=== PATIENT | female | born 1940 | race Caucasian/White ===

== ENCOUNTER → 2016-09-24 | Outpatient (CLI) | payer OTHER | END | disposition home or self-care (01) | DX: M17.12 Unilateral primary osteoarthritis, left knee (principal); R26.2 Difficulty in walking, not elsewhere classified; M62.81 Muscle weakness (generalized); M25.662 Stiffness of left knee, not elsewhere classified | CPT/HCPCS: 97110 GP; 97150 GO; 97161 GP; 97165 GO ==

== ENCOUNTER 2016-10-07 06:55 | Inpatient (IN) | payer OTHER ==
[~2016-10-07] VITALS: Ht 165.1 cm; Wt 62.1 kg
[~2016-10-07 06:55] MED LIST: DYAZIDE, MA1 CAPSULE PO; IRON325 MG PO; LISINOPRIL5 MG PO; LORCET HD 10-31 EACH PO; MARTEN-TAB 3251 EACH PO; MS CONTIN,ORAMO30 MG PO; NEURONTIN300 MG PO; SYNTHROID88 MCG PO; ZOCOR20 MG PO; ZYRTEC10 M2 PO
[2016-10-07 07:27] VITALS: BP 185/86
[2016-10-07 07:50] VITALS: BP 185/86
[2016-10-07 13:56] VITALS: BP 167/74
[2016-10-07 14:31] LABS: PROTHROMBIN TIME 10.5 (9.2-11.2)
[2016-10-07 15:37] VITALS: BP 168/70
[2016-10-07 20:08] VITALS: BP 116/59
[2016-10-08 00:15] VITALS: BP 117/59
[2016-10-08 04:13] VITALS: BP 123/58
[2016-10-08 06:13] LABS: HEMATOCRIT 32.7 % (36.0-46.0); MCV 100.3 FL (83-99)
[2016-10-08 06:51] LABS: ANION GAP 4 MEQ/L (2-14); CHLORIDE 104 MEQ/L (99-109); GFR ESTIMATE (CALCULATED) > 59 mL/min/; GLUCOSE 128 mg/dL (70-99); POTASSIUM 4.1 MEQ/L (3.7-5.4); SAMPLE HEMOLYSIS CHECK 0; SAMPLE ICTERIC CHECK 0; SAMPLE LIPEMIA CHECK 0; SODIUM 140 MEQ/L (136-147); UREA NITROGEN (BUN) 14 mg/dL (9-23)
[2016-10-08 07:40] LABS: INTER. NORMALIZED RATIO 1.1; PROTHROMBIN TIME 10.9 (9.2-11.2)
[2016-10-08] MEDS ORDERED: COUMADIN2.5 MG PO (07:56)
[2016-10-08 08:00] VITALS: BP 183/76
[2016-10-08 12:26] VITALS: BP 166/77
[2016-10-08 16:15] VITALS: BP 172/75
[2016-10-08 20:25] VITALS: BP 161/70
[2016-10-09 00:25] VITALS: BP 156/68
[2016-10-09 04:20] VITALS: BP 185/80
[2016-10-09 05:48] LABS: HEMATOCRIT 30.3 % (36.0-46.0); MCV 98.4 FL (83-99)
[2016-10-09 06:03] LABS: INTER. NORMALIZED RATIO 2.1
[2016-10-09 06:10] LABS: PROTHROMBIN TIME 21.5 (9.2-11.2)
[2016-10-09 07:30] VITALS: BP 167/75
[2016-10-09 11:52] VITALS: BP 135/75
== END 2016-10-09 16:20 | DRG 470 ==
LOC: 3WEST 06:55 → 2SOUTH 06:55 → 3WEST 13:47 → 2SOUTH 15:46 → 3WEST 10-09 16:20
PROVIDERS: Orthopaedic Surgery
PROC: 0SRD0J9 Replacement of Left Knee Joint with Synthetic Substitute, Cemented, Open Approach (ICD-10-PCS; principal; 2016-10-07)
DX: M17.12 Unilateral primary osteoarthritis, left knee (principal); I10 Essential (primary) hypertension; R53.1 Weakness; G89.18 Other acute postprocedural pain; E78.5 Hyperlipidemia, unspecified; K21.9 Gastro-esophageal reflux disease without esophagitis; J30.89 Other allergic rhinitis; E03.9 Hypothyroidism, unspecified; K46.9 Unspecified abdominal hernia without obstruction or gangrene; G89.29 Other chronic pain
CPT/HCPCS: 80048; 85014; 85018; 85610; C1713; J0690; J1170; J1885; J2250; J2405; J3010; J7050; J7120